=== PATIENT | male | born 1950 | race Caucasian/White ===

== ENCOUNTER → 2021-10-22 10:57 | Outpatient (CLI) | payer MEDICARE, SELFPAY | PROVIDERS: PCP Internal Medicine; Visit Provider Ophthalmology | DX: Z01.812 Encounter for preprocedural laboratory examination (principal); Z20.822 Contact with and (suspected) exposure to COVID-19 | CPT/HCPCS: C9803; U0003; U0005 ==

== ENCOUNTER → 2021-11-26 11:12 | Outpatient (CLI) | payer MEDICARE, SELFPAY | PROVIDERS: PCP Internal Medicine; Visit Provider Ophthalmology | DX: Z01.812 Encounter for preprocedural laboratory examination (principal); Z20.822 Contact with and (suspected) exposure to COVID-19; H25.012 Cortical age-related cataract, left eye | CPT/HCPCS: C9803; U0003; U0005 ==

== ENCOUNTER 2021-11-29 10:17 | Day surgery (SDC) | payer MEDICARE, SELFPAY ==
[2021-11-24 14:04] VITALS: BMI 34.8
[2021-11-29] VITALS (7 sets, daily range): BP systolic 149–171; BP diastolic 72–85; PULSE 69–71; RESP 18; TEMP 36.1–36.3; O2SAT 95–100
[2021-11-29 11:48] LABS: POC Glucose,Bedside 235 (70-110)
== END 2021-11-29 13:00 | disposition home or self-care (01) ==
LOC: OR 10:19
PROVIDERS: PCP Internal Medicine; Visit Provider Ophthalmology
DX: H26.9 Unspecified cataract (principal); E10.9 Type 1 diabetes mellitus without complications; Z79.899 Other long term (current) drug therapy
CPT/HCPCS: 66984; 82962; V2632

== ENCOUNTER → 2021-12-10 09:08 | Outpatient (CLI) | payer MEDICARE, SELFPAY | PROVIDERS: PCP Internal Medicine; Visit Provider Ophthalmology | DX: Z01.812 Encounter for preprocedural laboratory examination (principal); Z20.822 Contact with and (suspected) exposure to COVID-19 | CPT/HCPCS: C9803; U0003; U0005 ==

== ENCOUNTER 2021-12-13 09:14 | Day surgery (SDC) | payer MEDICARE, SELFPAY ==
[2021-12-08 11:04] VITALS: BMI 35.7
[2021-12-13] VITALS (7 sets, daily range): BP systolic 129–155; BP diastolic 70–85; PULSE 69–71; RESP 16–18; TEMP 36.2–36.4; O2SAT 93–97
[2021-12-13 11:14] LABS: POC Glucose,Bedside 202 (70-110)
== END 2021-12-13 12:20 | disposition home or self-care (01) ==
PROVIDERS: PCP Internal Medicine; Visit Provider Ophthalmology
DX: H25.811 Combined forms of age-related cataract, right eye (principal); E11.36 Type 2 diabetes mellitus with diabetic cataract
CPT/HCPCS: 66984; 82962; V2632